=== PATIENT | male | born 1960 | race African-American/Black ===

== ENCOUNTER 2023-12-06 16:06 | Emergency (ER) | payer SELFPAY ==
[~2023-12-06] VITALS: Ht 177.8 cm; Wt 79.5 kg
[2023-12-06] MEDS ORDERED: MESA0.374 PO (16:18)
[2023-12-06] MEDS: SODIUM CHLORIDE 0.9% 1,000 ML IV ONE (17:06)
[2023-12-06 17:19] LABS: ANION GAP 10 mmol/L (8-16); CALCIUM, TOTAL 9.4 mg/dL (8.8-10.5); CARBON DIOXIDE 27 mmol/L (22-29); CHLORIDE 104 mmol/L (98-107); CREATININE 1.18 mg/dL (0.60-1.30); GLOMERULAR FILTR. RATE CALC > 60 mL/min (>60); GLUCOSE,RANDOM 109 mg/dL (70-110); POTASSIUM 3.7 mmol/L (3.5-5.1); SODIUM SERUM 141 mmol/L (136-145); UREA NITROGEN, BLOOD 13 mg/dL (7-18)
[2023-12-06 17:22] LABS: BASOPHILS % (AUTO) 0.1 % (0.0-2.0); EOSINOPHILS % (AUTO) 1.9 % (1.0-6.0); HEMOGLOBIN 14.1 g/dL (13.5-17.5); LYMPHOCYTES # (AUTO) 0.7 K/uL (1.0-4.8); LYMPHOCYTES % (AUTO) 5.9 % (22.0-44.0); MEAN CORPUSCULAR HEMOGLOBIN 30.3 pg (26.0-34.0); MEAN CORPUSCULAR HGB CONC 32.8 G/dL (31.0-37.0); MEAN CORPUSCULAR VOLUME 93 fL (80-100); MONOCYTES # (AUTO) 0.6 K/uL (0.1-1.0); NEUTROPHILS # (AUTO) 10.8 K/uL (1.8-7.7); PLATELET COUNT (AUTO) 348 K/uL (150-450); RED BLOOD CELL COUNT(AUTO) 4.64 MIL/uL (4.50-5.90); WHITE BLOOD COUNT (AUTO) 12.4 K/uL (4.5-11.0)
[2023-12-06 17:24] LABS: NEUTROPHILS % (AUTO) 87.1 % (40.0-70.0)
[2023-12-06 17:25] LABS: ALANINE AMINOTRANSFERASE 17 U/L (12-78); ALBUMIN 3.5 g/dL (3.4-5.0); ALKALINE PHOSPHATASE 88 U/L (46-116); ASPARTATE AMINOTRANSFERASE 20 U/L (15-37); BILIRUBIN,TOTAL 0.4 mg/dL (0.1-1.0)
[2023-12-06 17:27] LABS: TROPONIN I-HIGH SENSITIVITY 4 ng/L (<76)
[2023-12-06 21:21] LABS: APPEARANCE,URINE CLEAR (CLEAR); BILIRUBIN,URINE NEGATIVE (NEGATIVE); COLOR,URINE LIGHT YELLOW (YELLOW); GLUCOSE, URINE (UA) NEGATIVE (NEGATIVE); KETONES,URINE NEGATIVE (NEGATIVE); LEUKOCYTE ESTERASE ,URINE NEGATIVE (NEGATIVE); NITRATE,URINE NEGATIVE (NEGATIVE); OCCULT BLOOD,URINE NEGATIVE (NEGATIVE); PROTEIN,URINE NEGATIVE (NEGATIVE); SPECIFIC GRAVITIY, URINE 1.016 (1.003-1.030); UROBILINOGEN,URINE <=1.0 mg/dL (<=1.0)
[2023-12-06] MEDS ORDERED: SODIUM CHLORIDE 0.9% 100 ML ONE (21:24)
[2023-12-06] MEDS ORDERED: IOHEXOL 350 MG/ML 100 ML VIAL ONE (21:25)
[2023-12-06 23:20] VITALS: BP 112/66; PULSE 116; RESP 18; TEMP 99.5
== END 2023-12-07 00:08 | disposition home or self-care (01) ==
LOC: EMS 16:12
DX: K51.90 Ulcerative colitis, unspecified, without complications (principal); R55 Syncope and collapse
CPT/HCPCS: 99285; 74177; 96360; 80053; 81003; 84484; 85025; 36415; 74022; 93005; Q9967; J7030; J7050